=== PATIENT | male | born 1935 | race Caucasian/White ===

== ENCOUNTER → 2017-05-24 | Outpatient (CLI) | payer OTHER ==
[~2017-05-24] VITALS: Ht 190.5 cm; Wt 93.0 kg
[~2017-05-24] MED LIST: AMBIEN 5 MG TABL5 M1 PO; LOSARTAN-HCTZ1 EACH PO; OXAZEPAM 15 MG15 M1 PO; SERTRALINE HCL50 MG PO; XARELTO15 MG PO
--- NOTE | ~2017-05-24 | P ---
[facility] [place] [address] PROCEDURE REPORT Name: LOW HOBSON Room #: REG BERLIN SteinerAniaAaronAnia#: [id number] Admission: 05/24/17 Attend Phys: Herve San MD Discharge: Date of : 31 Report #: [id number] THIS REPORT FOR: //name// CC: FAM dakota James Eddkath Herve San PROCEDURE PERFORMED: Pacemaker generator exchange. PREOPERATIVE DIAGNOSIS: Pacemaker at the elective replacement interval. POSTOPERATIVE DIAGNOSIS: Pacemaker at the elective replacement interval. 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 He is here for pacemaker generator exchange. ANESTHESIA: The patient underwent MAC anesthesia with no anesthesia related complications. PROCEDURE: The patient underwent informed consent where we discussed the details of the procedure including the risks, which include, but not limited to bleeding, infection and need for possible lead revision. He understood these risks and is willing to proceed. As such, he was brought to the EP laboratory in a fasting and sedated state, prepped and draped in a sterile fashion. He received IV antibiotics in the form of Ancef. Next, I injected lidocaine at the prior incision site. Incision was made, the chronic pocket was opened and the old device was disconnected and leads were inspected and found to be functioning normally. The new device was connected and placed in the pocket. Device was tested and found to be functioning normally. The pocket was irrigated with vancomycin and then the pocket was closed in 3 layers using 2-0 for the deep layer, 3-0 for the mid layer and 4-0 for the subcuticular. Surgical glue was placed to the outer skin layer. The patient awoke neurologically and hemodynamically intact with no complications and no significant bleeding. The explanted pacemaker was a [employer], model #IC8601, serial #[id number]. Newly implanted pacemaker is a [employer] model #JU8035, serial #[id number]. Both the atrial and ventricular leads are [employer] leads implanted in 2012. The atrial lead demonstrated a P-wave of 3.5 millivolts, pacing impedance of 410 ohms and pacing threshold 1.25 volts at 0.4 milliseconds. The RV lead demonstrated an R-wave of 3.4 millivolts, pacing impedance of 490 ohms and the pacing threshold 0.75 volts at 0.4 milliseconds. The device was programmed to the DDD 60-130 mode. CONCLUSIONS: [facility] [address] [place] [address] PROCEDURE REPORT Name: HOBSONLOW Room #: REG BERLIN Hagan#: [id number] Admission: 05/24/17 Attend Phys: Herve San MD Discharge: Date of : 31 Report #: [id number] 1. Successful dual-chamber pacemaker generator exchange. 2. Satisfactory atrial and ventricular pacing and sensing thresholds. <ELECTRONICALLY SIGNED> By: Herve San MD 06/28/17 1617 [id number] Herve San MD /nt
[2017-05-24 11:23] LABS: ABSOLUTE NEUTROPHILS 3.6 thou/uL (1.4-8.2); BASOPHILS 0.6 % (0.0-2.0); EOSINOPHILS 1.2 % (0.0-3.0); HEMATOCRIT 43.6 % (42.0-52.0); HEMOGLOBIN 14.8 gm/dL (14.0-18.0); LYMPHOCYTES 23.2 % (24.0-44.0); MCH 31.2 pg (26.0-34.0); MCHC 33.9 g/dL (28.0-37.0); MONOCYTES 6.4 % (1.0-8.0); PLATELET COUNT 170 thou/uL (150-400); POLYS 68.6 % (36.0-66.0); RBC 4.74 mil/uL (4.50-6.00); RDW 13.8 % (10.5-14.5); WBC 5.2 thou/uL (4.0-11.0)
[2017-05-24 11:33] LABS: CALCIUM 9.3 mg/dL (8.5-10.1); CREATININE 1.2 mg/dL (0.7-1.3); POTASSIUM 4.1 mmol/L (3.5-5.1)
[2017-05-24 11:38] LABS: APTT 27.8 Seconds (24.5-32.8); PROTIME 10.7 Seconds (9.3-11.4)
[2017-05-24 11:41] LABS: ALBUMIN 3.7 g/dL (3.4-5.0); TOTAL BILIRUBIN 0.9 mg/dL (<0.1-1.0)
== END | disposition home or self-care (01) ==
LOC: CATH 09:59
PROVIDERS: Internal Medicine Cardiovascular Disease
DX: I49.5 Sick sinus syndrome (principal); I10 Essential (primary) hypertension; I48.0 Paroxysmal atrial fibrillation; E78.5 Hyperlipidemia, unspecified; Z98.890 Other specified postprocedural states; I49.9 Cardiac arrhythmia, unspecified
CPT/HCPCS: 62110; 62900; 70005